=== PATIENT | male | born 1990 | race Caucasian/White ===

== ENCOUNTER 2023-10-15 11:15 | Emergency (ER) | payer OTHER, SELFPAY ==
[2023-10-15 11:24] VITALS: BP 121/56; PULSE 81; RESP 20; TEMP 36.6; O2SAT 100
--- NOTE | 2023-10-15 11:34 | ED.GENADULT ---
HPI - General Adult General Chief complaint: Eye Problems Stated complaint: Stye in eye Source: patient Mode of arrival: ambulatory Limitations: no limitations History of Present Illness HPI narrative: Patient presents for evaluation of swelling and redness to the left upper eyelid. Symptom onset 4 days ago. He denies any visual disturbance. He had similar symptoms about a month ago on the right and was treated for a stye. He has been applying warm compresses. He denies visual disturbance. He does not were glasses or contacts. Related Data Allergies Allergy/AdvReac Type Severity Reaction Status Date / Time No Known Allergies Allergy Verified 10/15/23 11:29 Review of Systems Review of Systems: CONSTITUTIONAL: Denies fever, chills, or sweats. EYES: Reports redness and swelling to left upper eyelid. Denies visual changes or discharge. ENT: Denies rhinorrhea, congestion, sore throat, or otalgia. CARDIOVASCULAR: Denies chest pain, palpitations, or edema. RESPIRATORY: Denies cough or dyspnea. GASTROINTESTINAL: Denies abdominal pain, nausea, vomiting, or diarrhea. GENITOURINARY: Denies dysuria or hematuria. SKIN: Denies rash or itching. MUSCULOSKELETAL: Denies back pain, joint pain, or myalgia. NEUROLOGIC: Denies headache, numbness, dizziness, or weakness. PSYCHIATRIC: Denies anxiety or depression. [facility] Past Medical History Medical History No pertinent past medical history Surgical History Surgical History No pertinent past surgical history Family History Family History Mother Family history non-contributory Social History Social History Substance use: never Living arrangements: with family Gender identity (if verbalized by the patient): Male Sexual Orientation (if Verbalized by the Patient): Straight or Heterosexual Spiritual care concerns: No Exam Narrative: GENERAL: Well-appearing, well-nourished, and in no acute distress. HEAD: Normocephalic, atraumatic. EYES: PERRLA and EOMI. ENT: Nares clear, no rhinorrhea or epistaxis. Mucous membranes moist. Oropharynx without tonsillar hypertrophy exudate or other lesions. Bilateral TMs pearly jara nonbulging NECK: Supple. No adenopathy or masses. No carotid bruits or JVD CHEST: Clear to auscultation. No respiratory distress. No wheezes rales or rhonchi HEART: Regular rate and rhythm. No murmur heard. Normal peripheral pulses. ABDOMEN: Soft, nontender, nondistended, normal active bowel sounds. EXTREMITIES: Normal range of motion. No edema. SKIN: There is erythema to left upper eyelid with associated swelling NEURO: No focal deficits. Alert and oriented x3. PSYCH: Normal mood and affect. Course Course Emergency Course: This is a 33-year-old male who presented for evaluation of redness and swelling to the left upper eyelid. His exam is consistent with hordeolum. Continue warm compresses. Start erythromycin. Follow up with primary provider. Go to the ER for worsening symptoms. Pt in agreement with plan of care. Level of Care: Express Care Visit Vital Signs Vital signs: Vital Signs Temperature 36.6 C 10/15/23 11:24 Pulse Rate 81 10/15/23 11:24 Respiratory Rate 20 10/15/23 11:24 Blood Pressure 121/56 L 10/15/23 11:24 Pulse Oximetry 100 10/15/23 11:24 Oxygen Delivery Room Air 10/15/23 11:24 Temperature 36.6 C 10/15/23 11:24 Pulse Rate 81 10/15/23 11:24 Respiratory Rate 20 10/15/23 11:24 Blood Pressure 121/56 L 10/15/23 11:24 Pulse Oximetry 100 10/15/23 11:24 Oxygen Delivery Room Air 10/15/23 11:24 Medical Decision Making Vital Signs Vital Signs: Vital Signs Temperature 36.6 C 10/15/23 11:24 Pulse Rate 81 10/15/23 11:24 Respiratory Ra
== END 2023-10-15 11:35 | disposition home or self-care (01) ==
PROVIDERS: Emergency Provider Nurse Practitioner
DX: H00.014 Hordeolum externum left upper eyelid (principal)
CPT/HCPCS: 99213; G0463

== ENCOUNTER 2025-06-02 17:32 | Emergency (ER) | payer OTHER, SELFPAY ==
--- NOTE | ~2025-06-02 | XR_ITS ---
Examination: XR tibia fibula LT 2V Clinical History: injury Comparison: None Technique: 2 views left tibia fibula 4 films Findings/impression: 1. No fracture or other acute abnormality. Reviewed, dictated and finalized at location R.
[2025-06-02 17:37] VITALS: BP 121/72; PULSE 64; RESP 20; TEMP 36.2; O2SAT 99
--- OUTSIDE RECORDS SUMMARY | 2025-06-02 17:37 | XMS_ITS | Clinical Summary ---
Author Organization [facility] Address [address] [place] [address] Care Team Providers Care Iron Erector Name Role Phone Unavailable Primary Care Provider Unavailabl e Source Comments [facility],non-owned Affiliates and Associated Physician Practices is amultiple site organization consisting of ambulatory clinics and hospital sitesin [place], [place], [place] and [place]. This disclosure is being madepursuant to the Care Everywhere program and may not contain all information available regarding this patient. Last updated 18.[facility] Allergies No known active allergies Medications * Be aware that medications may not be up to date on this document. Alwaysverify current medications with the patient. 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[employer] Gender Identity Not on file Sexual Orientation Not on file Last Filed Vital Signs Vital Sign Reading Time Taken Comments Blood Pressure 116/70 11/04/2019 4:22 PM JOB TRAINING SUPERVISOR Pulse 70 11/04/2019 4:22 PM JOB TRAINING SUPERVISOR Temperature 36.9 C (98.5 F) 11/04/2019 4:22 PM JOB TRAINING SUPERVISOR Respiratory Rate 16 11/04/2019 4:22 PM JOB TRAINING SUPERVISOR Oxygen Saturation 99% 11/04/2019 4:22 PM JOB TRAINING SUPERVISOR Inhaled Oxygen Concentration - - Weight 81.6 kg (180 lb) 11/04/2019 4:22 PM JOB TRAINING SUPERVISOR Height 175.3 cm (5' 9) 11/04/2019 4:22 PM JOB TRAINING SUPERVISOR Body Mass Index 26.58 11/04/2019 4:22 PM JOB TRAINING SUPERVISOR Plan of Treatment Health Maintenance Due Date Last Done Comments HIV SCREENING 2005 HEPATITIS C SCREENING 08/26/2008 DTAP/TDAP/TD VACCINES (1 - Tdap) 2009 HEPATITIS B VACCINE (1 of 3 - 19+ 3-dose series) 2009 HPV VACCINE (1 - 3-dose SCDM series) 2017 DEPRESSION SCREENING 09/04/2024 COVID-19 VACCINE (1 - 2023-2 5 season) 2025 INFLUENZA VACCINE (#1) 2025 ZOSTER VACCINE (1 of 2) 2040 HIB VACCINE Aged Out No longer eligi ble based on patient's age to complete this topic MENINGOCOCCAL (Group B) VACC INE SHARED DECISION-MAKING Aged Out No longer eligibl e based on patient's age to complete this topic MENINGOCOCCAL GROUPS A/C/Y/W VACCINE Aged Out No longer eligible b ased on patient's age to complete this topic PNEUMOCOCCAL VACCINE Aged Out No long er eligible based on patient's age to complete this topic
--- NOTE | 2025-06-02 17:56 | ED.LOWEXIN ---
HPI - Extremity Injury (Lower) General Chief Complaint: Extremity Injury, Lower Stated Complaint: Left Leg Injury Time Seen by Provider: 06/02/25 17:57 Source: patient and RN notes reviewed Mode of arrival: ambulatory Limitations: no limitations History of Present Illness HPI Narrative: 34-year-old male presents with concern for left leg pain. He reports he had collision with another player playing baseball yesterday. He reports he is using Tylenol, ibuprofen, lidocaine patches and Bernardo wrap. He reports worsening pain with weight-bearing. Denies decreased sensation, strength, range of motion distally. MD complaint: leg injury Related Data Home Medications ?Medication ?Instructions ?Recorded ?Confirmed ?Last Taken ?Type No Home Medications 06/02/25 Unknown History Allergies Allergy/AdvReac Type Severity Reaction Status Date / Time No Known Allergies Allergy Verified 06/02/25 17:42 Review of Systems Review of Systems: CONSTITUTIONAL: Denies malaise, chills, sweats, or fever. SKIN: Denies rash or itching, open skin, laceration, abrasion, redness, warmth MUSCULOSKELETAL: Reports left leg pain, bruising, swelling NEUROLOGIC: Denies numbness, weakness All systems reviewed & are unremarkable except as noted in HPI and below PMFSH Past Medical History Medical History (Updated 06/02/25 @ 18:08 by Olga Damon NP) No pertinent past medical history Surgical History Surgical History No pertinent past surgical history Family History Family History Mother Family history non-contributory Social History Social History Substance use: never Living arrangements: with family Gender identity (if verbalized by the patient): Male Sexual Orientation (if Verbalized by the Patient): Straight or Heterosexual Spiritual care concerns: No Comments At time of signature, agree with nursing past medical, surgical, social and family history. There is no relevant family history pertinent to the presenting complaint Exam Narrative: GENERAL: Well-appearing, well-nourished, and in no acute distress. HEAD: Normocephalic, atraumatic. EYES: PERRLA, conjunctivae clear NECK: Supple. CHEST: Speaks in full sentences. No respiratory distress. HEART: Regular rate and rhythm. Normal and equal peripheral pulses. EXTREMITIES: Left lower extremity has grossly normal strength and sensation, grossly normal range of motion. Mild lateral lower leg edema and ecchymosis. 5/5 strength with ankle flexion and extension. Normal sensation with sensitivity to light touch and pain. Lateral lower leg tenderness. No open wounds, no skin tenting, no devitalized tissue or atrophy, no trophic changes, no obvious deformity, alignment normal, nearby joints and structures intact. Distal pulses palpable and equal bilaterally, skin warm, dry, pink. Capillary refill less than 3 seconds. SKIN: Warm, dry, no rash. NEURO: Alert and oriented x3. PSYCH: Normal mood and affect Course Course Emergency Course: Patient is aware of diagnosis, understands and agrees to treatment plan. Anticipatory guidance given. Patient agrees to follow-up as directed and is aware of reasons to seek care at the emergency department. Portions of this record may have been created with voice recognition software Level of Care: Express Care Visit Vital Signs Vital signs: Vital Signs Temperature 97.2 F L 06/02/25 17:37 Pulse Rate 64 06/02/25 17:37 Respiratory Rate 20 06/02/25 17:37 Blood Pressure 121/72 06/02/25 17:37 Pulse Oximetry 99 06/02/25 17:37 Oxygen Delivery Room Air 06/02/25 17:37 Temperature 97.2 F L 06/02/25 17:37 Pulse Rate 64 06/02/25 17:37 Respiratory Rate 20 06/02/25 17:37 Blood Pressure 121/72 06/02/25 17:37 Pulse Oximetry 99 06/02/25 17:37 Oxygen Delivery Room Air 06/02/25 17:37 Reviewed. MDM - Extremity Injury (Lower) MDM Narrative Medical decision making narrative: The patient was evaluated by myself in the express care. History is obtained from patient who is an independent historian and physical exam was performed.? Available medical records were reviewed at this time. ? Exam findings show no acute concerns or changes; patient is non-toxic appearing and is in no distress. Patient is appropriate for outpatient treatment and follow-up. ? I have evaluated and discussed social determinants of health with the patient that could potentially impact subsequent diagnosis and treatment plans. ? Patients injury and pain is consistent with musculoskeletal etiology. No signs of neurological or vascular compromise on exam. Compartments and tissues are soft without signs of compartment syndrome. Pain is felt appropriate for further evaluation on an outpatient basis. Imaging Data My impression: Images reviewed, interpreted by radiologist, agree, see report. Radiologist's impression: Examination: XR tibia fibula LT 2V Clinical History: injury Comparison: None Technique: 2 views left tibia fibula 4 films Findings/impression: 1. No fracture or other acute abnormality. Critical Care Time Critical Care Time Critical Care Time: No Discharge Plan Discharge Clinical Impression: Contusion Patient Disposition: Home Condition: Stable Instructions: Contusion in Adults (ED) Additional Instructions: Your x-ray is normal Avoid activities that cause pain until the pain subsides. Ice to the area 20-30 minutes 4-6 times a day Elevate above heart Elastic wrap as needed for comfort for the next 5-7 days Tylenol for lesser pain Ibuprofen regularly for the next 2-3 days for the inflammation Follow up with your primary care provider if the condition is not improving within 1 week. If the condition worsens with numbness, tingling, decrease sensation with weakness seek treatment in the emergency room immediately. Patient Language: [place] Prescriptions: No Action No Home Medications Follow-up/Referrals: PHYSICIAN,CRIPPLE WORKER [Primary Care Provider, Internal Medicine] Time of Disposition: 18:08
== END 2025-06-02 18:11 | disposition home or self-care (01) ==
PROVIDERS: Emergency Provider Nurse Practitioner
DX: S80.12XA Contusion of left lower leg, initial encounter (principal); W51.XXXA Accidental striking against or bumped into by another person, initial encounter; Y93.64 Activity, baseball
CPT/HCPCS: 73590; 99213; G0463